=== PATIENT | male | born 1955 | race Caucasian/White ===

== ENCOUNTER 2018-07-12 09:26 | Day surgery (SDC) | payer BC ==
[2018-07-08 14:45] VITALS: BMI 25.7
[2018-07-12] MEDS ORDERED: PROPOFOL 20 ML ONE (12:03)
[2018-07-12] MEDS ORDERED: MIDAZOLAM HCL 2 MG/2 ML SINGLE DOSE VIAL ONE (12:03)
[2018-07-12] MEDS ORDERED: DEXAMETHASONE SOD PHOSPHATE 4 MG/1 ML VIAL ONE (12:23)
[2018-07-12] MEDS ORDERED: LIDOCAINE HCL/PF 2% SDV 5ML VIAL ONE (12:23)
[2018-07-12] MEDS ORDERED: ONDANSETRON 4 MG/2 ML VIAL ONE ×2 (12:23→13:54)
[2018-07-12] MEDS ORDERED: ROCURONIUM BROMIDE 50 MG/5 ML VIAL ONE (12:24)
[2018-07-12] MEDS ORDERED: ceFAZolin SODIUM 1 GM VIAL ONE (12:44)
[2018-07-12] MEDS ORDERED: BUPIVACAINE HCL 0.25% 125 MG/50 ML VIAL ONE (12:54)
[2018-07-12] MEDS ORDERED: NEOSTIGMINE METHYLSULFATE 0.5 MG/ML - 10 ML MDV ONE (13:35)
[2018-07-12] MEDS ORDERED: GLYCOPYRROLATE 0.2 MG/1 ML VIAL ONE (13:36)
[2018-07-12] MEDS ORDERED: LACTATED RINGERS SOLUTION 1,000 ML IV SCH (14:15)
[2018-07-12] MEDS ORDERED: oxyCODONE HCL 5 MG TABLET PO PRN ×4 (14:15→14:20)
[2018-07-12] MEDS ORDERED: ONDANSETRON 4 MG/2 ML VIAL IVPUSH PRN ×2 (14:15→14:20)
[2018-07-12] MEDS ORDERED: PROMETHAZINE HCL 25 MG/1 ML VIAL IVPUSH PRN (14:20)
[2018-07-12] MEDS ORDERED: HYDROmorphone HCL 0.5 MG/0.5 ML SYRINGE ONE (14:35)
[2018-07-12 15:29] VITALS: TEMP 98.2
[2018-07-12 16:03] VITALS: BP 122/68; PULSE 72
--- NOTE | 2018-07-13 08:18 | OP ---
DATE OF OPERATION: 07/12/2018 SURGEON: Sunita Luke MD HAT BRAIDER: LIBERTAD Khan PREOPERATIVE DIAGNOSES: 1. Elbow synovitis. 2. Elbow loose bodies, right elbow. 3. Right elbow bone spurs. POSTOPERATIVE DIAGNOSES: 1. Elbow synovitis. 2. Elbow loose bodies, right elbow. 3. Right elbow bone spurs. PROCEDURE: Right elbow arthroscopy with removal of synovitis, loose bodies, and excision of bone spurs. FINDINGS: 1. Anterior elbow showed multiple loose bodies, extensive synovitis, and bone spur anterior across the distal humerus. 2. Posterior elbow showed spurring across the olecranon as well as the distal humerus groove for the olecranon and extensive synovitis. DESCRIPTION OF PROCEDURE: Informed consent was obtained. The patient was taken to the operating room where the right upper extremity was prepped and draped in sterile fashion. Patient was placed in prone position. Using standard arthroscopic technique, an ulnar-side incision was made 4 cm proximal to the medial epicondyle. This was taken down to the anterior portion of the humerus, into the joint. Prior to this, the joint was injected with 20 mL of saline. Under direct visualization, a superior anterolateral portal was made. Excessive loose bodies and synovitis were debrided. These were removed using a shaver as well as grasper. The camera was then switched to the secondary portal, which found other loose bodies which were removed as well. Camera was then placed through a central portal on the central proximal triceps, followed by a radial-sided portal, paying careful attention to avoid the ulnar nerve. Extensive, thickened scar tissue was removed in the bursal area. Articulation was evaluated, and there was found to be impingement upon the olecranon and the distal humerus. Spurs were removed from both sides. Elbow was then drained. Single stitch was placed at all portals. Sterile dressing was placed. The patient was transferred to Recovery without complication. SUNITA LUKE M.D. [id number]
--- NOTE | 2018-07-16 12:29 | PATH ---
Surgical Pathology Report Patient Name: JACEK TOM Med. Rec. #: [id number] /Age/Gender: 1955 (Age: 62) / M Account: [id number] Location: [facility] Taken: 07/12/2018 Received: 07/12/2018 Reported: 07/16/2018 Physicians: Adná Luna M.D. Specimen(s) Received A: SHAVINGS RIGHT ELBOW B: LOOSE BODY RIGHT ELBOW Clinical History Osteoarthritis right elbow Final Diagnosis A. SHAVINGS, ELBOW, RIGHT, ARTHROSCOPY: FRAGMENTS OF BENIGN DENSE FIBROCONNECTIVE TISSUE, FIBROADIPOSE TISSUE, BONE, AND SKELETAL MUSCLE. B. ELBOW, RIGHT, LOOSE BODY, REMOVAL: BENIGN BONE AND FATTY MARROW, FIBROUS AND CARTILAGINOUS SURFACE CONSISTENT WITH LOOSE BODIES. Electronically Signed Rae Aguilar M.D. Gross Description A. Received in formalin, labeled "shavings right elbow," is a 3.0 x 2.5 x 0.3 cm. aggregate of durbin-yellow soft tissue fragments. A international representative portion is submitted in one cassette. B. Received in formalin labeled "loose body right elbow," are 3 durbin-yellow fragments of cartilage and possible bone ranging from 0.5-1.0 cm in greatest dimension. The specimens are submitted in toto in one cassette, following decalcification. /07/15/201807/15/2018
== END 2018-07-12 16:06 | disposition home or self-care (01) ==
LOC: FASU 09:26
PROVIDERS: ATTEND Orthopaedic Surgery
PROC: 0RBL4ZZ Excision of Right Elbow Joint, Percutaneous Endoscopic Approach (ICD-10-PCS; 2018-07-12)
PROC: 0RCL4ZZ Extirpation of Matter from Right Elbow Joint, Percutaneous Endoscopic Approach (ICD-10-PCS; 2018-07-12)
PROC: 0RBL4ZZ Excision of Right Elbow Joint, Percutaneous Endoscopic Approach (ICD-10-PCS; principal; 2018-07-12 12:53)
DX: M25.721 Osteophyte, right elbow (principal); M24.021 Loose body in right elbow; M65.831 Other synovitis and tenosynovitis, right forearm
CPT/HCPCS: 88304-TC; 88311-TC